=== PATIENT | female | born 1990 | race African-American/Black ===

== ENCOUNTER 2019-08-04 08:46 | Emergency (ER) | payer OTHER, SELFPAY ==
[2019-08-04 08:56] VITALS: BP 135/87; PULSE 113; RESP 18; TEMP 37.5; O2SAT 99
--- NOTE | 2019-08-04 09:18 | ED.URI ---
HPI - URI/Sore Throat General Chief Complaint: Upper Respiratory Infection Stated Complaint: Sore Throat Source: patient Mode of arrival: ambulatory Limitations: no limitations History of Present Illness HPI Narrative: Patient is a 29-year-old female who presents complaining of sore throat, cough, congestion, body aches. Denies fever. Denies nausea, vomiting, or diarrhea. She denies taking [id number] medications at this time. She reports symptoms x2 days. MD elicited complaint: cough and sore throat Related Data Allergies Allergy/AdvReac Type Severity Reaction Status Date / Time No Known Allergies Allergy Verified 08/04/19 09:06 Review of Systems Review of Systems: Narrative: CONSTITUTIONAL: Denies fever, chills, or sweats. EYES: Denies visual changes, redness, or discharge. ENT: Denies rhinorrhea, or otalgia. Reports sore throat and congestion CARDIOVASCULAR: Denies chest pain, palpitations, or edema. RESPIRATORY: Reports cough, denies dyspnea. GASTROINTESTINAL: Denies abdominal pain, nausea, vomiting, or diarrhea. GENITOURINARY: Denies dysuria or hematuria. SKIN: Denies rash or itching. MUSCULOSKELETAL: Denies back pain, joint pain, or myalgia. NEUROLOGIC: Denies headache, numbness, dizziness, or weakness. PSYCHIATRIC: Denies anxiety or depression. [facility] Past Medical History Medical History (Updated 08/04/19 @ 09:26 by JOE Mayorga) No pertinent past medical history Surgical History Surgical History (Updated 08/04/19 @ 09:23 by JOE Mayorga) No pertinent past surgical history Social History Social History (Updated 08/04/19 @ 09:23 by JOE Mayorga) Smoking status: Never smoker Alcohol intake: never Substance use: never Living arrangements: with family Occupation/Education: occupation Gender identity (if verbalized by the patient): Female Exam Narrative: Exam Narrative: GENERAL: Well-appearing, well-nourished, and in no acute distress. HEAD: Normocephalic, atraumatic. EYES: EOMI. No redness or drainage. Conjunctiva are normal. ENT: Mucous membranes pink and moist. Nares clear. No rhinorrhea. TMs normal bilaterally. Pharyngeal erythema and edema. Uvula midline. NECK: AROM. Supple. No lymphadenopathy. CHEST: No respiratory distress. Clear to auscultation. HEART: Regular rate and rhythm. No murmur appreciated. Normal peripheral pulses. SKIN: Warm, dry, no rash. NEURO: No focal deficits. Alert and oriented x3. Gait steady. PSYCH: Normal affect. No signs of depression or anxiety. Course Vital Signs Vital signs: Vital Signs Temperature 37.5 C 08/04/19 08:56 Pulse Rate 113 H 08/04/19 08:56 Respiratory Rate 18 08/04/19 08:56 Blood Pressure 135/87 08/04/19 08:56 Pulse Oximetry 99 08/04/19 08:56 Temperature 37.5 C 08/04/19 08:56 Pulse Rate 113 H 08/04/19 08:56 Respiratory Rate 18 08/04/19 08:56 Blood Pressure 135/87 08/04/19 08:56 Pulse Oximetry 99 08/04/19 08:56 Rapid strep negative, influenza negative MDM - URI/Sore Throat MDM Narrative Medical decision making narrative: Patient's most likely diagnosis is pharyngitis. Discussed with patient plan of care. Patient is stable for discharge to home with outpatient follow-up. Differential Diagnosis Differential diagnosis: Likely upper respiratory infection, sinusitis, viral infection, influenza and pharyngitis Lab Data Labs: Influenza A Screen Negative Reference Range: Negative Influenza B Screen Negative Reference Range: Negative Strep Screen Presumptive Negative *(Reference Range: Negative)* Critical Care Time Critical Care Time Critical Care Time: No Discharge Plan Discharge Clinical Impression: Pharyngitis Patient Disposition: Home, Self-Care Condition: Stable Instructions: Antibiotic Form, Pharyngitis (ED) Additional Instructions: Take medication as directed. You may ret
== END 2019-08-04 09:55 | disposition home or self-care (01) ==
PROVIDERS: Emergency Provider Nurse Practitioner
DX: J02.9 Acute pharyngitis, unspecified (principal)
CPT/HCPCS: 87081; 87804; 87880; 99213; G0463